=== PATIENT | male | born 1955 | race Caucasian/White ===

== ENCOUNTER 2017-01-31 11:54 | Inpatient (IN) | payer MEDICARE, MEDICAID ==
[~2017-01-31] VITALS: Ht 152.4 cm; Wt 48.6 kg
--- NOTE | ~2017-01-31 | DS ---
PATIENT'S NAME: DOMINICK RESENDEZ [facility] AGE: 61 Y [address] ROOM: [place] [id number] LOCATION: [facility] ADMIT DATE: 01/31/2017 Discharge Summary DISCHARGE DATE: 02/05/2017 FAMILY PHYSICIAN: Shani Santoyo MD ATTENDING PHYSICIAN: Shani Santoyo DISCHARGE DIAGNOSIS: 1. Pneumonia, bilateral lower lobes. 2. Hypoxia. 3. Decreased appetite with malnutrition. 4. Hypokalemia. 5. Hypothyroidism. 6. Hyperlipidemia. 7. Anxiety. 8. Down syndrome. 9. Incontinence with temporary urinary obstruction. 10. Anxiety. PROCEDURES DURING ADMISSION: None. CONSULTS DURING ADMISSION: None. HOSPITAL COURSE: The patient is a 61-year-old male who presented to clinic with hypoxia along with acute renal failure and an elevated white blood cell count and CRP. The patient was started on Levaquin and also supplemental oxygen. The patient was titrated to room air but had a decreased appetite which after couple days resumed back to his regular diet. The patient was hypokalemic and we replaced and his acute renal function resolved. Upon day of discharge, the patient was back to baseline with mentation, tolerating diet well, and had Palm removed and was urinating without difficulty. DISCHARGE CONDITION: Stable. DISPOSITION: skilled nursing. DISCHARGE INSTRUCTIONS: We will continue with Levaquin 500 mg p.o. daily for 5 more days. He is to follow up with Dr. Santoyo in 1 week for lab work and evaluation. SHANI SANTOYO MD RLG/teodorol PATIENT'S NAME: DOMINICK RESENDEZ [facility] AGE: 61 Y [address] ROOM: [address] [address] LOCATION: [facility] ADMIT DATE: 01/31/2017 Discharge Summary DISCHARGE DATE: 02/05/2017 FAMILY PHYSICIAN: Shani Santoyo MD ATTENDING PHYSICIAN: Shani Santoyo /[id number] d: 02/06/17 0629 t: 02/10/17 1331, DISCHARGE SUMMARY
[~2017-01-31 11:54] MED LIST: ATIVAN 0.5MG0.5 MG PO; CLARITIN10 MG PO; DEPAKENE250 MG/5 M PO; DESOWEN 0.05%15 GM TOP; LEVOTHROID (SY50 MCG PO; LIPITOR10 MG PO; PAXIL10 MG PO; RISPERDAL0.25 MG PO; TAB-A-VITE1 EACH PO; TEGRETOL200 MG PO; TRIAMCINOLONE 080 GM TOP; VIMPAT100 MG PO; ZOFRAN4 MG PO
[2017-01-31] MEDS ORDERED: VIMPAT100 MG PO (13:12)
[2017-01-31] MEDS ORDERED: DITROPAN XL5 MG PO (13:15)
[2017-01-31] MEDS ORDERED: ALBUTEROL2.5 MG/31 INH (13:16)
--- NOTE | 2017-01-31 13:16 | NUR ---
Pt is 61 y/o male admit for pneumonia for . Pt alert. Not able to assess orientation. Pt has Down Syndrome and is non-verbal. Pt becomes agitated and hollers with cares and medical procedures. Repeatedly attempts to remove O2 cannula. Allergy to risperdal. Red and yellow bracelets on. Pt resides at [facility] home. Hx syncope,sz,Down syndrome,non-verbal,wears helmet,seasonal allergies,OCD,anxiety/agitation w cares,undressing; hypothyroidism. Pt came from doctor's office today. Has his own wheelchair and helmet in the room.
[2017-01-31] MEDS ORDERED: DELTASONE20 MG PO (13:17)
--- NOTE | 2017-01-31 18:12 | NUR ---
Significant Event: PT alert at times. PT is nonverbal does moan/groan. IV patent to L)FA. IV antx given, fluid bolus given. PT repositions self. Bed alarms on at all times. Ativan given x1 at 1700 for agitation. Follow up:
--- NOTE | 2017-02-01 05:33 | NUR ---
Significant Event:pt has downs syndrome, is non verbal. pt has been very lethargic all shift.has iv to l inner fa w/ ns@ 125. pt has wheel chair in room and helmet that he is supposed to wear when out of bed. titrate o2 to keep sats > 93, has been on ra for me. hypotensive. pt had not voided since admission, bladder scanned for 611, called and got order for katz from dr. chowdhury, inserted 14 fr due to small urethral opening, no red seal on drainage system. strick i&o. pt has been moving in bed ind, no attempts to get out of bed. Follow up: continue to monitor.
[2017-02-01 07:10] LABS: BASOPHIL # 0.1 K/uL (0.0-0.2); BASOPHIL % 1.1 %; EOSINOPHIL # 0.1 K/uL (0.0-0.5); EOSINOPHIL % 0.6 %; HEMATOCRIT 36.7 % (37.0-53.0); HEMOGLOBIN 12.3 g/dL (11.0-16.0); IMMATURE GRANULOCYTE # 0.1 K/uL (0.0-0.3); IMMATURE GRANULOCYTE % 0.7 %; LYMPHOCYTE # 1.7 K/uL (0.8-4.0); LYMPHOCYTE % 19.2 %; MCH 36.8 pg (27.0-34.0); MCHC 33.5 gm/dL (32.0-36.5); MCV 109.9 fl (83.0-98.0); MONOCYTE # 1.2 K/uL (0.0-1.0); MONOCYTE % 13.2 %; MPV 11.7 fl (9.4-12.4); NEUTROPHIL # (ANC) 5.9 K/uL (1.4-9.0); NEUTROPHIL % 65.2 %; NRBC % 0 /100WBC (0-0.00); PLATELET COUNT 258 K/uL (150-450); RBC 3.34 M/uL (3.50-5.50); RDW-CV 13.2 % (11.9-14.6)
[2017-02-01 07:23] LABS: BLOOD UREA NITROGEN 19 mg/dL (6-24); CALCIUM 8.3 mg/dL (8.5-10.5); CHLORIDE 114 mMol/L (96-110); CO2 28 mMol/L (22-32); ESTIMATED GFR (MDRD EQUATION) > 60; POTASSIUM 4.9 mMol/L (3.7-5.1)
[2017-02-01 07:27] LABS: ANION GAP 9.9 (10.0-19.0); SODIUM 147 mMol/L (135-145)
--- NOTE | 2017-02-01 17:53 | NUR ---
Significant event: Has slept most of shift. Fed for meals ate only bites for meals. Did eat jello well, refused to drink. Brother and mom here this am. Palm continues to drain clear yellow urine. Takes meds crushed and in applesauce.
--- NOTE | 2017-02-02 05:14 | NUR ---
Significant Event:pt has downs syndrome and is non verbal. pt more awake at times. takes meds crushed in apple sauce. pureed diet. pt has helmet in room that is to be on when pt is up due to hx of siezures. no siezure activity this hospital stay. gianna patent w/ 1250 uop. iv to l fa has d5 1/2 ns @ 125. pt on ra w/ sat 93-98% vss afebrile Follow up:continue to monitor
[2017-02-02 06:05] LABS: BASOPHIL # 0.1 K/uL (0.0-0.2); BASOPHIL % 1.1 %; EOSINOPHIL # 0.1 K/uL (0.0-0.5); EOSINOPHIL % 1.1 %; HEMATOCRIT 32.5 % (37.0-53.0); HEMOGLOBIN 11.5 g/dL (11.0-16.0); IMMATURE GRANULOCYTE # 0.1 K/uL (0.0-0.3); IMMATURE GRANULOCYTE % 1.9 %; LYMPHOCYTE # 1.5 K/uL (0.8-4.0); MCH 36.6 pg (27.0-34.0); MCHC 35.4 gm/dL (32.0-36.5); MCV 103.5 fl (83.0-98.0); MONOCYTE % 14.7 %; MPV 10.8 fl (9.4-12.4); NEUTROPHIL # (ANC) 3.8 K/uL (1.4-9.0); NEUTROPHIL % 58.2 %; NRBC % 0 /100WBC (0-0.00); PLATELET COUNT 271 K/uL (150-450); RBC 3.14 M/uL (3.50-5.50); RDW-CV 12.1 % (11.9-14.6); WBC 6.5 K/uL (4.0-11.0)
[2017-02-02 06:18] LABS: CALCIUM 7.8 mg/dL (8.5-10.5); CHLORIDE 105 mMol/L (96-110); CO2 25 mMol/L (22-32); CREATININE 0.8 mg/dL (0.6-1.3); ESTIMATED GFR (MDRD EQUATION) > 60
[2017-02-02 06:19] LABS: ANION GAP 11.7 (10.0-19.0); POTASSIUM 3.7 mMol/L (3.7-5.1); SODIUM 138 mMol/L (135-145)
[2017-02-02 06:20] LABS: BLOOD UREA NITROGEN 7 mg/dL (6-24)
--- NOTE | 2017-02-02 15:43 | NUR ---
Significant event: More alert today. Has eaten well today. Brother here this am and plastics sheet finishing press operator here to help him eat. Responds well to plastics sheet finishing press operator. After he ate lunch noted his left arm shaking, was able to grasp caretakers hand. After he had a snack of jello noted the shaking of left arm again does resolve on own. Palm draining clear yellow urine.
--- NOTE | 2017-02-03 04:23 | NUR ---
Significant Event:PT IS NON VERBAL BUT ORIENTED TO SELF. PT IS MORE AWAKE THIS SHIFT. DID PULL OUT IV , NEW ONE STARTED TO R HAND WHICK HE MANAGED TO GET THE SL UNHOOKED AND MADE A MESS, IV REDRESSED AND IV BOARD APPLIED TO HIS HAND. D5 1/2 NS RUNNING @ 125. PT HAS A MEZA W/ 1700MLS OUT THIS SHIFT. MEDS ARE TO BE CRUSHED AND PUT IN APPLESAUCE. PT DOES NEED ASSISTANCE WITH EATING BUT DOES HAVE FAMILY AND CAPACITY ANALYST FROM THE LONG TERM COME HELP. PT HAS WHEEL CHAIR IN ROOM AND HELMET THAT SHOULD BE ON IF PT NOT IN BED R/T HX OF SIEZURES. NO SIEZURE ACTIVITY THIS VISIT. PT SLIGHTLY HYPERTENSIVE @ 140/68 ON FIRST ASSESSMENT, 127/78 AT SECOND ASSESS. Follow up:
[2017-02-03 06:07] LABS: ANION GAP 11.3 (10.0-19.0); BLOOD UREA NITROGEN 4 mg/dL (6-24); CALCIUM 7.8 mg/dL (8.5-10.5); CHLORIDE 107 mMol/L (96-110); CO2 26 mMol/L (22-32); CREATININE 0.8 mg/dL (0.6-1.3); ESTIMATED GFR (MDRD EQUATION) > 60; POTASSIUM 3.3 mMol/L (3.7-5.1); SODIUM 141 mMol/L (135-145)
--- NOTE | 2017-02-03 16:00 | NUR ---
Significant Event: Afebrile. Lungs clear in the uppers and clear and diminished in the bases. Occasional loose cough. SaO2 remains 97% on room air asleep and awake. His SaO2 is positional, he dropped to 89% asleep with his head of bed up (head was tipped forward), when the bed was reclined his SaO2 went up to 96-97%. Workers from [facility] report he drinks thickened liquids to decrease his aspiration. No seizure activity noted. Catheter removed at 1328. Ambulated to the bathroom with 2 assist and gait belt, Sat on toliet without results but brief was wet (moderate) Follow up:Possible home tomorrow.
--- NOTE | 2017-02-03 16:34 | NUR ---
Met with patient's caregiver Klarissa today. Introduced myself and explained my role with the CM department. Klarissa states patient is a resident at [facility] and he receives 24 hour care. They are planning on patient returning to his home there once medically cleared for discharge. I am to contact Gilbert with [facility] at [phone] for transportation and discharge orders. If I cannot get in touch wiht Gilbert, then I am to call Klarissa at [phone]. Will continue to follow and offer supports as needed.
--- NOTE | 2017-02-04 04:24 | NUR ---
SIGNIFICANT EVENT: Patient very sleep most of shift. VSS stable other than being tachycardic at times (82 to 118) - increased agitation with obtaining VS. Continous Pulse Ox. Seizure precautions. Helmet is to be on when pt is out of bed. [place] is from [place] and goal is to DC back to his location - possibly today. Crush pills and put in applesauce (try to get in just one spoonful if at all possible). 2PA. Palm DC'd yesterday, 2 incontinent voids this shift.
[2017-02-04 05:21] LABS: BASOPHIL # 0.1 K/uL (0.0-0.2); BASOPHIL % 0.9 %; EOSINOPHIL # 0.1 K/uL (0.0-0.5); EOSINOPHIL % 0.6 %; HEMOGLOBIN 11.6 g/dL (11.0-16.0); IMMATURE GRANULOCYTE # 0.2 K/uL (0.0-0.3); IMMATURE GRANULOCYTE % 2.6 %; LYMPHOCYTE # 1.8 K/uL (0.8-4.0); LYMPHOCYTE % 20.2 %; MCH 36.6 pg (27.0-34.0); MCHC 35.2 gm/dL (32.0-36.5); MCV 104.1 fl (83.0-98.0); MONOCYTE # 1.1 K/uL (0.0-1.0); MONOCYTE % 12.2 %; NEUTROPHIL # (ANC) 5.7 K/uL (1.4-9.0); NEUTROPHIL % 63.5 %; NRBC % 0 /100WBC (0-0.00); PLATELET COUNT 313 K/uL (150-450); RBC 3.17 M/uL (3.50-5.50); RDW-CV 12.5 % (11.9-14.6); WBC 8.9 K/uL (4.0-11.0)
[2017-02-04 05:31] LABS: ANION GAP 10.6 (10.0-19.0); BLOOD UREA NITROGEN 5 mg/dL (6-24); CALCIUM 8.1 mg/dL (8.5-10.5); CHLORIDE 107 mMol/L (96-110); CO2 27 mMol/L (22-32); CREATININE 0.8 mg/dL (0.6-1.3); ESTIMATED GFR (MDRD EQUATION) > 60; POTASSIUM 3.6 mMol/L (3.7-5.1); SODIUM 141 mMol/L (135-145)
--- NOTE | 2017-02-04 13:57 | NUR ---
Significant Event: Pt non-verbal and unable to follow commands. Inc urine. Repositioned q 2-3 hrs. IV K+ given, pulled out IV, new IV started to left anterior arm. Pt fed meals. Pureed thickened liquids. Crush meds in applesauce. Helmet on when up. Follow up:
--- NOTE | 2017-02-05 02:20 | NUR ---
SIGNIFICANT EVENT: Patient slept most of shift. Hypertensive at times - 128 to 170 over 79 to 87, other VSS on RA. PIV to L)FA infusing D5 1/2NS at 100. Crush meds and put in a spoonful of applesauce. Pureed regular diet, nectar thick liquids. 2PA to transfer/reposition. 3 Mod/Lg incontinent voids so far this shift. Helmet on when ambulating. Cooperative with cares.
--- NOTE | 2017-02-05 11:19 | NUR ---
A - PT SCREENED D/T LOS. NONVERBAL. NEEDS ASSISTANCE W/ MEALS. HT: 60" WT: 107# BMI: 20.9. LABS: K+ 3.6, BUN/CR 5/0.8, CRP 3.03. MEDS: SYNTHROID, D5NS, LEVAQUIN, NAUSEA. DIET: PUREED, NECTAR LIQUIDS. INTAKE: 25-100% NEEDS: 6176-2613 KCAL (25-30 KCAL/KG), 39-49 G PRO (0.8-1 G/KG), 1470 ML FLUID (30 ML/KG). D - INADEQUATE NUTRIENT INTAKE AT TIMES R/T DECREASED APPETITE AEB INTAKE RECORD. I - GOAL FOR INTAKE 50-100% BY NEXT ASSESSMENT. WILL ADD ENSURE PUDDING @ L&D M/E - WILL MONITOR INTAKE. F/U IN 3-5 DAYS.
[2017-02-05] MEDS ORDERED: LEVAQUIN500 MG PO (12:08)
--- NOTE | 2017-02-05 12:55 | NUR ---
D: ORDERS RECEIVED FOR THE PATIENT TO RETURN HOME WITH HIS CAREGIVERS. I: DISMISSAL INSTRUCTIONS WERE PREPARED AND REVIEWED WITH HIS CAREGIVERS VIRTUALLY. THE FOLLOWING INFORMATION WAS DISCUSSED INCLUDING KRAMES TEACHING SHEETS PROVIDED: WHEN YOU HAVE PNEUMONIA, TREATING PNEUMONIA, PREVENTING PNEUMONIA, LEVAQUIN AND PREVENTING DVT. REVIEWED FOLLOW UP APPOINTMENT WITH DR. SANTOYO AND HIS NEW ANTIBIOTIC PRESCRIPITIONS. R: THE CAREGIVER BOTH VERBALIZED UNDERSTANDING OF THE DISMISSAL EDUCATION AT THE TIME OF TEACHING WITH NO FURTHER QUESTIONS. P: THE ABOVE INFORMATION WAS SHARED WITH THE PRIMARY NURSE AND THE CHARGE NURSE THAT THE PATIENT DISMISSAL EDUCATION WAS COMPLETED. THE PATIENT IS READY FOR DISCHARGE TO THE FRONT DOOR VIA WHEEL CHAIR BY NURSING STAFF.
--- NOTE | 2017-02-05 13:11 | NUR ---
Notified by charge nurse that patient is okay for discharge today. I contaced Gilbert with [facility] and arranged for patient to be picked up at 1230 for discharge. Faxed patient's discharge orders to Nisa (Medical Coordinator) at [facility] [phone]. No other discharge needs.
== END 2017-02-05 13:09 | disposition disaster alternative care site (69) | DRG 194 ==
LOC: GMSU 11:54 → EDSTATUS 12:00 → GMSU 02-05 13:09
PROVIDERS: ADMIT Family Medicine
DX: J18.1 Lobar pneumonia, unspecified organism (principal); N17.9 Acute kidney failure, unspecified; N18.3 Chronic kidney disease, stage 3 (moderate); Q90.9 Down syndrome, unspecified; E44.1 Mild protein-calorie malnutrition; E03.9 Hypothyroidism, unspecified; E78.5 Hyperlipidemia, unspecified; F79 Unspecified intellectual disabilities; R09.02 Hypoxemia; E86.0 Dehydration; E87.6 Hypokalemia; R32 Unspecified urinary incontinence; F41.9 Anxiety disorder, unspecified; N13.9 Obstructive and reflux uropathy, unspecified; Z68.21 Body mass index [BMI] 21.0-21.9, adult
CPT/HCPCS: J1650; J1956; J2060; J3480; J7030; J7040; J7050

== ENCOUNTER 2017-02-07 10:22 | Inpatient (IN) | payer MEDICARE, MEDICAID ==
[~2017-02-07] VITALS: Ht 157.5 cm; Wt 56.2 kg
--- NOTE | ~2017-02-07 | HP ---
PATIENT'S NAME: DOMINICK RESENDEZ [facility] AGE: 61 Y [address] ROOM: [place] [address] LOCATION: [facility] ADMIT DATE: 02/07/2017 History & Physical DISCHARGE DATE: FAMILY PHYSICIAN: Saurabh Cooley MD ATTENDING PHYSICIAN: JUANITO ROBB DATE OF SERVICE: CHIEF COMPLAINT: Status epilepticus. HISTORY OF PRESENT ILLNESS: This is a 61-year-old male with a known history of Down syndrome and severe mental retardation, seizure disorder, who presents here today after sustaining a seizure-like episode. The patient was apparently at work today and while at work he was noted to slouch over a chair and attempting to sit down and brace himself as noted by his fellow coworkers. That initial episode lasted for few seconds and then it seemed like he recovered and then went ahead and had another seizure which from the description I am getting sounded like a tonic- clonic type seizure and was subsequently brought to the emergency room. The patient during my evaluation today is awake and alert and mental status luo appears to be at his baseline and his caretakers and family agrees to that as well. Of note, the patient has been having some nausea and vomiting since yesterday after he got home from his hospitalization discharge, which he had just been hospitalized for management of pneumonia and then was released yesterday. The patient otherwise looks comfortable, he is afebrile. Vital signs currently stable. PAST MEDICAL HISTORY: Includes severe MR, hard of hearing, cataracts, obsessive-compulsive disorder, and seizure disorder. FAMILY HISTORY: Father had an NV at age 45 and his mom has diabetes. SOCIAL HISTORY: No reported use of tobacco, alcohol, or drugs. REVIEW OF SYSTEMS: A full review of systems was not able to be conducted because of the patient's known severe mental retardation. PHYSICAL EXAMINATION: VITAL SIGNS: Temperature 97.5, blood pressure 108/60, pulse 95, respiratory rate 12, and saturating 91% on room air. PATIENT'S NAME: DOMINICK RESENDEZ [facility] AGE: 61 Y [address] ROOM: [place] [address] LOCATION: [facility] ADMIT DATE: 02/07/2017 History & Physical DISCHARGE DATE: FAMILY PHYSICIAN: Saurabh Cooley MD ATTENDING PHYSICIAN: JUANITO ROBB GENERAL: The patient is awake, alert, and oriented x1 and appears to be at baseline. HEENT: Moist mucous membranes. No scleral icterus or conjunctival pallor noted. SKIN: Without rash or lesions. CHEST: Clear to auscultation bilaterally. HEART: S1, S2. Regular rate and rhythm. ABDOMEN: Soft, nontender, nondistended with positive bowel sounds. NEURO: Grossly nonfocal. MUSCULOSKELETAL: No joint tenderness, swelling, or muscular pain noted. ASSESSMENT AND PLAN: 1. Status epilepticus. The patient noted to have 2 separate seizures 10 minutes apart. The patient is supposed to be on valproic acid at home and measured levels here do show this to be within the therapeutic range; however, in the setting of a breakthrough seizure levels, probably do not mean much. In any case, I will load him with Keppra 1000 mg IV x1 and keep him on 500 mg p.o. b.i.d. 2. Hypotension. This is likely related to the patient's seizure. No signs and symptoms of a possible infection to explain this are noted. We will continue to monitor. The patient is on 1 L of bolus. 3. Acute kidney injury. Creatinine 1.5, baseline is less than 1. We will recheck kidney function in the morning after IV fluid resuscitation. 4. Hypothyroidism, uncontrolled. TSH 14. I will increase his Synthroid to 100 mcg daily. 5. Mental retardation and Down syndrome. 6. Deep venous thrombosis prophylaxis. We will use subcutaneous heparin. JUANITO ROBB MD BG/modl /[id number] D: T: 521 HISTORY & PHYSICAL
--- NOTE | ~2017-02-07 | DS ---
PATIENT'S NAME: DOMINICK RESENDEZ [facility] AGE: 61 Y [address] ROOM: [address] [place], [place] [address] LOCATION: [facility] ADMIT DATE: 02/07/2017 Discharge Summary DISCHARGE DATE: 02/09/2017 FAMILY PHYSICIAN: Saurabh Cooley MD ATTENDING PHYSICIAN: Raysa Garcia SUMMARY DATE OF DISCHARGE/: 02/09/2017. ADMITTING DIAGNOSIS: Status epilepticus. DISCHARGE DIAGNOSES: (The patient on comfort care measures). 1. Status epilepticus. 2. Acute hypoxemic respiratory failure. 3. Acute septic shock likely secondary to #4. 4. Possible aspiration pneumonitis/pneumonia. 5. Severe intellectual impairment. HOSPITALIZATION COURSE: This was a 61-year-old male with history significant for Down syndrome, severe intellectual impairment, and seizure disorder, who was admitted to [facility] on 02/07/2017 for recurrent seizure- like episodes and was admitted as status epilepticus. He was initially loaded up with phenytoin and ativan with improvement in the seizures. However, during his hospitalization, he again had further episodes of seizure that required administration of ativan. On the night of 02/08/2017, the patient had an acute respiratory distress and went into an acute septic shock with acute hypoxemic respiratory failure. He was given several liters of fluid and put on high-flow oxygen. His code status was DNR and DNI. Family members were informed about the situation and they did not want to have any aggressive measures like such as intubation or central line placement. The patient was placed on the dopamine drip, maxed out to maintain blood pressure and his oxygenation was around 92% on 6 L. His mental status remained poor during the hospitalization. We discussed at length about the goals of care for the patient. Dr Orona (organic preparation analyst) had a long discussion with the family members and informed them his situation. Patient's sister Marga and brother Arias reiterated that he wasa DNR/DNI and that they did not want to have any more aggressive measures such as intubation or central line placement for additional pressor support. The patient was continued on supportive management with IV fluids and IV Zosyn. CXR done showed perihilar insterstitial opacities that was worrisome for pulmonary edema versus infiltrate. I attempted to give some Lasix 20 mg IV while he was on dopamine drip with no significant improvement. I asked for palliative care consult as well. The family including POA decided to go for comfort care measures and all infusions were discontinued. The patient on 02/09/2017 at 09:15 a.m. Family was at bedside. Support provided to the family members. PCP was notified by nurse. PATIENT'S NAME: DOMINICK RESENDEZ [facility] AGE: 61 Y [address] ROOM: [place] [address] LOCATION: [facility] ADMIT DATE: 02/07/2017 Discharge Summary DISCHARGE DATE: 02/09/2017 FAMILY PHYSICIAN: Saurabh Cooley MD ATTENDING PHYSICIAN: Raysa Garcia The patient was pronounced at 09:15 a.m. on 02/09/2017 by myself. MARA TINEO MD BA/modl /[id number] d: 02/11/17 0346 t: 02/11/17 1703, DISCHARGE SUMMARY
--- NOTE | ~2017-02-07 | ER ---
PATIENT'S NAME: DOMINICK RESENDEZ [facility] AGE: 61 Y [address] ROOM: [place] [address] [facility] ADMIT DATE: 02/07/2017 ER/Outpatient Report DISCHARGE DATE: FAMILY PHYSICIAN: Saurabh Cooley MD ATTENDING PHYSICIAN: JUANITO GARCIA CHIEF COMPLAINT: Seizure-like activity with vomiting. HISTORY OF PRESENT ILLNESS: The patient had 2 episodes of seizure this morning, which were witnessed and described as unusual eye movements and body stiffening. Total duration is unclear. He did not appear to return to baseline prior to going to clinic. He did vomit on the way to clinic. Upon being evaluated there, he was referred here and arrived by ambulance for that same issue. He has likely known seizure disorder as well as Down syndrome with significant mental developmental delay. He is usually mute but relatively active according to collateral sources. He has known hypothyroidism and high cholesterol as well. PAST MEDICAL HISTORY: Documented on the record and reviewed by me. SOCIAL HISTORY: Documented on the record and reviewed by me. MEDICATIONS: Documented on the record and reviewed by me. ALLERGIES: DOCUMENTED ON THE RECORD AND REVIEWED BY ME. REVIEW OF SYSTEMS: All systems were reviewed and negative except as noted in the HPI. PHYSICAL EXAMINATION: VITAL SIGNS: Blood pressure 102/58, pulse is 84, respiratory rate is 18, temperature 96.2, SpO2 is 91% on room air. Pain is unclear. NEURO: The patient is awake. He does move all extremities spontaneously. He does not follow commands. He does not talk. He does regard the examiner. GENERAL: He does have an ill appearance. Generally, he has poor color, but no obvious other abnormalities. There is some vomitus on his shirt. HEENT: Normocephalic, atraumatic. The eyes are PERRL. The oropharynx is clear. NECK: Supple. Trachea is midline. There are some significant secretions and some coarseness in the throat upon auscultation. PATIENT'S NAME: DOMINICK RESENDEZ [facility] AGE: 61 Y [address] ROOM: [place] [address] LOCATION: [facility] ADMIT DATE: 02/07/2017 ER/Outpatient Report DISCHARGE DATE: FAMILY PHYSICIAN: Saurabh Cooley MD ATTENDING PHYSICIAN: JUANITO GARCIA CHEST: Heart is regular rate and rhythm with no obvious murmurs. The lungs are grossly clear to auscultation bilateral with what I believe is referred upper airway sounds. BACK: Nontender with no deformities. ABDOMEN: Soft, nontender, and nondistended. EXTREMITIES: Warm and well perfused. SKIN: Warm, dry, and intact. LABORATORY DATA AND X-RAYS: Chest x-ray without any infiltrate per my read. Radiology opinion is pending. Labs: Procalcitonin is below detectable threshold. CMS is notable for a creatinine of 1.5; GFR of 48, up from 0.8 and greater than 60 respectively. Remainder of LFTs and CMS are grossly unremarkable. Troponin I is below threshold. ProBNP is 326. Free T4 and TSH are consistent with known hypothyroidism. Lactate is 3.7. Prolactin is 63. Valproic acid is 55. CBC: Notable for white count of 9.2, hemoglobin 12.4, platelets of 311. INR is 1.0. Blood gas: The pH of 7.41, pCO2 is 48, pO2 is 50, bicarb is 30.4, CO2 is 32, FiO2 is room air. Head CT, unremarkable per Radiology. IMPRESSION: 1. Seizure with prolonged return to baseline. 2. Lactic acidemia. 3. Acute kidney injury with azotemia. 4. Underlying Down syndrome with developmental delay. 5. Intermittent hypoxia of undetermined etiology. EMERGENCY DEPARTMENT COURSE: The patient was seen and evaluated as above. Volume was given for JENNIFER and elevated lactate. No anion gap. Blood gas reveals normal pH. His O2 monitor would intermittently read in the mid 90s and mid 80s, both with good plethysmography with no change in the patient's condition. His blood gas was redrawn and remained basically unchanged indicating mild hypoxemia. The patient would not tolerate nasal cannula, and we would remove it. For that reason, a facemask was placed near his chin, and the flow rate was turned up high, and he was receiving blow-by oxygen. The patient would tolerate same. Based on his current presentation, he requires hospitalization. I spoke with the patient's primary care, Dr. Cooley, who will not be able to care for him in the hospital and has requested the Hospitalist Service. I discussed the case with Dr. Garcia, who will admit the patient for further evaluation and treatment. Of note, while the patient was sleeping, his blood pressures did go lower into the 75 range systolically. Upon awaking the patient, his blood pressure came back up to his normal range around 100 systolic. All PATIENT'S NAME: DOMINICK RESENDEZ [facility] AGE: 61 Y [address] ROOM: [place] [address] LOCATION: [facility] ADMIT DATE: 02/07/2017 ER/Outpatient Report DISCHARGE DATE: FAMILY PHYSICIAN: Saurabh Cooley MD ATTENDING PHYSICIAN: JUANITO GARCIA questions were answered, and the patient was admitted without further issue to the progressive care unit. MD BONNIE DYSON/tono /[id number] d: 02/07/17 2246 t: 02/18/17 1732, OUTPATIENT REPORT
--- NOTE | ~2017-02-07 | CON ---
PATIENT'S NAME: DOMINICK RESENDEZ [facility] AGE: 61 Y [address] ROOM: [id number] [place], [place] [id number] LOCATION: [facility] ADMIT DATE: 02/07/2017 Consultation DISCHARGE DATE: FAMILY PHYSICIAN: Saurabh Cooley MD ATTENDING PHYSICIAN: JUANITO ROBB DATE OF CONSULTATION: 02/08/2017 The patient was seen on 02/08/2017 at 2:00 p.m. HISTORY OF PRESENT ILLNESS: Mr. Resendez is known to our Neurology Service from prior admission back in July. He is seen in [facility] by Dr. Cooley. He is a 61-year-old male patient who was sent here from [facility] after recent hospitalization here in our hospital for a pneumonia. He has a history of severe mental retardation associated with Down syndrome as well as a seizure disorder. We had seen him in our office as well as in the hospital few times due to episodes of falling as well as periods of poorly-controlled seizure activity. Last time, the patient was seen in our office, we made some adjustments to his seizure medications a number of months ago. The patient was apparently at work and slouched down into his chair, was found by the fellow coworkers to appear to be like a typical seizure for him, associated with some generalized tonic-clonic activity. It was reported also that he had some difficulty with keeping down his food during the day and was actually having episodes of nauseousness and vomiting. He previously had some issues with pneumonia, thus a chest x-ray did show some worsening of his interstitial opacities throughout the lungs consistent with likely the pneumonia or some fluid overload. The patient had been receiving IV fluids here. Blood pressure elevated, but now he has been put also on dopamine for blood pressure control. CAT scan of the brain was done, which showed no evidence of any acute process such as a stroke, but showed enlarged stable ventricles associated with generalized parenchymal atrophy. From a neurologic standpoint, he is sedated, likely from multiple times receiving doses of Ativan in the setting of him having generalized seizures during the evening, so he has been receiving normal saline due to low blood pressure events. His most recent blood pressure was holding around 100 systolic, thus difficulty giving him diuretics to diurese him has been the major issue in the setting of him also receiving Ativan. PRIOR MEDICAL HISTORY: History of depression and OCD. Significant history is only associated with Down syndrome. ALLERGIES: HE HAS NO KNOWN DRUG ALLERGIES. PATIENT'S NAME: DOMINICK RESENDEZ [facility] AGE: 61 Y [address] ROOM: [id number] [place], [place] [address] LOCATION: [facility] ADMIT DATE: 02/07/2017 Consultation DISCHARGE DATE: FAMILY PHYSICIAN: Saurabh Cooley MD ATTENDING PHYSICIAN: JUANITO ROBB SOCIAL HISTORY: He is not a smoker or drinker. He does not live with his family, but lives at [facility]. SURGICAL HISTORY: None. CURRENT MEDICATIONS: Here include, 1. Valproate 500 mg IV q.h.s. as well as valproate 250 mg daily given IV. 2. Levothyroxine 50 mcg IV daily. 3. Lacosamide increased to 200 mg twice a day. 4. Levetiracetam 500 mg IV twice a day. 5. Zosyn 0.375 g IV q.8 hours. REVIEW OF SYSTEMS: The patient presents with a generalized seizure as a known seizure disorder multiple times. He has had a loss of consciousness in the past. This event seemed to be associated with more of a respiratory issue, as the patient has had opacities seen on the chest x-ray consistent with pneumonia. There is some evidence of CHF component here. The patient does have a history of CHF. He has mental retardations associated with Down syndrome. Echocardiogram done in 2016 does reveal left ventricular ejection fraction of 55-60% with a mild grade 1 diastolic dysfunction. PHYSICAL EXAMINATION: GENERAL: The patient is obtunded. He is unresponsive. Currently, he is lying in bed. He appears to be comfortable. He is not in acute distress. His pulse oxygenation 96% on room air. He is receiving dopamine pressor support for blood pressure holding into the 90s systolic without pressor support. VITAL SIGNS: Pulse of 76 and regular, respiration rate 12, blood pressure 102/80, temperature is afebrile. NEUROLOGIC: Cranial Nerves: Pupils are equal and reactive and responsive to light. We did test his extraocular movements. He appears to have normal facial symmetry. He does not move his limbs to painful stimuli. He cannot participate in the exam as he is otherwise obtunded. IMPRESSION: Mr. Resendez is known to Neurology from prior strokes associated with poorly controlled seizure history. We will increase the dosing of the lacosamide medication to 200 mg twice a day. We will get levels on his valproic acid, and try to push the levels up appropriately to assure better seizure management. We will try to cut back as best as possible on the use of Ativan PATIENT'S NAME: DOMINICK RESENDEZ [facility] AGE: 61 Y [address] ROOM: [place] [address] LOCATION: [facility] ADMIT DATE: 02/07/2017 Consultation DISCHARGE DATE: FAMILY PHYSICIAN: Saurabh Cooley MD ATTENDING PHYSICIAN: JUANITO ROBB since this is probably aiding towards some obtundation, but we will have to be careful with the blood pressures as well as fluid input as of recently over the past 5 hours he has had very little urinary output. Thus, Lasix is going to be instituted slowly in the patient. We will continue to follow the patient's seizure status with the medical staff. MD KAREN OREILLY/tono /[id number] d: 02/08/171 t: 02/09/170, CONSULTATION REPORT
--- NOTE | ~2017-02-07 | CON ---
PATIENT'S NAME: DOMINICK RESENDEZ [facility] AGE: 61 Y [address] ROOM: [place] [address] LOCATION: [facility] ADMIT DATE: 02/07/2017 Consultation DISCHARGE DATE: 02/09/2017 FAMILY PHYSICIAN: Saurabh Cooley MD ATTENDING PHYSICIAN: Raysa Garcia DATE OF CONSULTATION: 02/08/2017 REFERRING PHYSICIAN: Rdaha Longoria MD LOCATION: Neuro Trauma Unit, room 6232. CHIEF COMPLAINT: Palliative care referral for goals of care and the patient's family support. HISTORY OF PRESENT ILLNESS: The patient is a 61-year-old male with a history of Down syndrome, seizure disorder, and a recent hospitalization, during which time, he was treated for bilateral lower lobe pneumonia. Family reports that the patient has been having some nausea and vomiting since his discharge from the hospital. The patient lives in a intermediate under [facility]. Apparently, he had returned to work on the day of admission and was noted to be slouched over in a chair and seemed to be having seizure activity. The patient was brought to the emergency room after having another seizure and was admitted to the hospital. On the night of February 07, 2017 the patient was noted to have decreased oxygen saturations and hypotension and a Rapid Response was called. Apparently, the patient is being maintained on 6 L of oxygen and a dopamine drip. The patient is unresponsive with sonorous respirations, and his family is at bedside. Despite fluid resuscitation, vasopressors, and high-flow oxygen as well as antibiotics, now the patient remains unresponsive and family is requesting no further additional aggressive measures. Thus, Palliative Care has been consulted to assist with goals of care conversation. PREVIOUS OPERATION: 1. Implantable loop recorder. 2. Colonoscopy. 3. Teeth extraction. PAST MEDICAL HISTORY: 1. Down syndrome with MR. 2. Seizure disorder. 3. Bilateral cataracts. 4. Obsessive-compulsive disorder. MEDICATIONS: PATIENT'S NAME: DOMINICK RESENDEZ [facility] AGE: 61 Y [address] ROOM: [place] [address] LOCATION: [facility] ADMIT DATE: 02/07/2017 Consultation DISCHARGE DATE: 02/09/2017 FAMILY PHYSICIAN: Saurabh Cooley MD ATTENDING PHYSICIAN: Raysa Garcia Please see current MAR. ALLERGIES: RISPERDAL. SOCIAL HISTORY: No history of tobacco or alcohol use. The patient resides in a intermediate with [facility]. FAMILY HISTORY: He has a brother who also has Down syndrome. All other siblings are alive and well. His mother is diabetic. REVIEW OF SYSTEM: As per HPI, all other systems reviewed and negative except for as noted. PHYSICAL EXAMINATION: VITALS SIGNS: Blood pressure 94/51, heart rate 76, temperature 98.2, respirations 16, O2 sat 99% on 6 L. GENERAL: Reveals an unresponsive elderly white male who is lying in a hospital bed, does not appear to be in any acute distress. Although he does occasionally have coughing episodes which cause some distress, but he calms right down. HEENT: Pupils are equal, round, and reactive to light. Normocephalic, atraumatic. He does have a thick tongue which is dry. CARDIOVASCULAR: Heart tones regular rate and rhythm. I am not able to note a murmur. RESPIRATORY: Respirations are regular and nonlabored, occasionally has very weak, moist cough. He is unable to clear on his own. GASTROINTESTINAL: Abdomen is soft, nondistended. GENITOURINARY: Palm catheter is intact with adequate amounts of yellow urine. MUSCULOSKELETAL: No significant joint deformity. Does have generalized edema. SKIN: Warm and dry, no rashes. IMPRESSION AND PLAN: 1. Altered mental status, status epilepticus. Status post Ativan administration. We will continue to monitor. The patient's sister reports that when he is awake and feeling well, he will pull out his IVs and any tubes/wires. 2. Respiratory distress. The patient at this point appears fairly comfortable except for when he coughs, does have p.r.n. morphine available and this was used x1 last night. Did discuss with nursing staff to use this more frequently as the family would like for him to be PATIENT'S NAME: DIPTI DOMINICK D [facility] AGE: 61 Y [address] ROOM: [place] [address] LOCATION: [facility] ADMIT DATE: 02/07/2017 Consultation DISCHARGE DATE: 02/09/2017 FAMILY PHYSICIAN: Saurabh Cooley MD ATTENDING PHYSICIAN: Raysa Garcia. 3. Code status. The patient is a DNR/DNI. I visited with the patient's sister who is at bedside, introduced the role of palliative care to assist with comfort and goals of care conversation. Family reports to me that the ultimate goal is for the patient to be comfortable, but at this point, they want to give him a chance to get better with continued antibiotics and dopamine, but reports that if his condition worsens, they do not wish for additional interventions such as vasopressors, BiPAP, or intensive care unit transfer. Provided education to the patient's sister on comfort measures. Medications will be used to help him to be comfortable as well as the possibility of discontinuing dopamine and high-flow oxygen to help him pass comfortably. At this point, they would like to see how the next 24- 48 hours go. Provided emotional support and active listening. Offered pastoral care. Family reports that they had already been up and they feel as though they have good support. Family seems quite realistic to the situation. The patient's sister does report that their mom is struggling a bit with this, but she has good support. Discussed with nursing staff, encouraged them to call me should there be any symptoms or should the family have any questions or should they wish to pursue full comfort measures. Total time at bedside was 35 minutes. Greater than 50% of this time was spent providing education and counseling. Thank you for allowing me assist this patient and family. LENNOX CHILDS NP FOR DORINA CUENCA MD DLS/modl /[id number] d: 02/11/17 2254 t: 02/13/17 1122, CONSULTATION REPORT
[2017-02-07 10:55] LABS: BASOPHIL # 0.1 K/uL (0.0-0.2); EOSINOPHIL # 0.1 K/uL (0.0-0.5); EOSINOPHIL % 0.8 %; HEMATOCRIT 35.9 % (37.0-53.0); HEMOGLOBIN 12.4 g/dL (11.0-16.0); IMMATURE GRANULOCYTE # 0.5 K/uL (0.0-0.3); IMMATURE GRANULOCYTE % 4.9 %; LYMPHOCYTE # 2.2 K/uL (0.8-4.0); MCH 36.5 pg (27.0-34.0); MCHC 34.5 gm/dL (32.0-36.5); MCV 105.6 fl (83.0-98.0); MONOCYTE % 10.9 %; NEUTROPHIL # (ANC) 5.3 K/uL (1.4-9.0); NEUTROPHIL % 58.4 %; NRBC % 0 /100WBC (0-0.00); PLATELET COUNT 311 K/uL (150-450); RDW-CV 13.5 % (11.9-14.6); WBC 9.2 K/uL (4.0-11.0)
[2017-02-07 11:04] LABS: INR - (THERAPEUTIC) 1.06 (0.92-1.07); PROTIME 11.1 SECONDS (9.8-11.4); PTT 28 SECONDS (25-32)
[2017-02-07 11:19] LABS: ALBUMIN 2.3 gm/dL (3.5-5.0); ALK PHOS 89 IU/L (33-138); ALT 45 IU/L (12-78); ANION GAP 14.8 (10.0-19.0); AST 39 IU/L (10-40); BLOOD UREA NITROGEN 17 mg/dL (6-24); CALCIUM 8.5 mg/dL (8.5-10.5); CHLORIDE 104 mMol/L (96-110); CO2 25 mMol/L (22-32); CREATININE 1.5 mg/dL (0.6-1.3); POTASSIUM 3.8 mMol/L (3.7-5.1); SODIUM 140 mMol/L (135-145); TOTAL BILIRUBIN 0.2 mg/dL (0.0-1.5); TOTAL PROTEIN 6.3 g/dL (6.0-8.4)
[2017-02-07 11:21] LABS: ESTIMATED GFR (MDRD EQUATION) 48
[2017-02-07 13:01] LABS: BICARBONATE 30.4 mmol/L (18.0-23.0); PCO2 48 mmHg (35-45); PO2 50 mmHg (80-90)
--- NOTE | 2017-02-07 15:03 | NUR ---
PT is 61 y/o male admit for acute kidney injury/seizures for hospitalist. Pt alert. Hx Down Syndrome. Resides at [facility]. On normal days he walks with at least 1 assist if not independently. Wears helmet at home. Hx seizures, has implanted loop recorder,KAIBAB,seasonal allergies,no teeth-eats soft diet,hypercholest,occas cough,hypothyroid,OCD,anxiety timothy with medical procedures and cares, and syncope. Family at bedside. Allergy to risperdal. Red and yellow bracelets on. Implanted loop recorder in place for cardiac monitoring for unexplained syncopal episode hx.
--- NOTE | 2017-02-07 19:15 | NUR ---
Significant Event: alert. opens eyes spontaneously. does not follow commands. lung sounds clear/diminished. ambulates with gait belt and two assist. continent of urine. takes meds crushed in applesauce. no teeth. pureed diet. IV to left hand with NS at 75ml/hr. no seizures since taken to [facility] today. ASAEL. Does have loop recorder. tele with [employer].
[2017-02-08 00:30] LABS: BILIRUBIN URINE NEGATIVE (NEGATIVE); BLOOD URINE NEGATIVE /UL (NEGATIVE); COLOR URINE YELLOW (YELLOW); GLUCOSE URINE NEGATIVE (NEGATIVE); KETONE URINE NEGATIVE (NEGATIVE); LEUKOCYTES URINE NEGATIVE /UL (NEGATIVE); NITRITE URINE NEGATIVE (NEGATIVE); PROTEIN URINE NEGATIVE (NEGATIVE); TURBIDITY URINE CLEAR (CLEAR); UROBILINOGEN URINE NORMAL (NORMAL)
[2017-02-08 00:43] LABS: BASOPHIL # 0.1 K/uL (0.0-0.2); BASOPHIL % 0.4 %; EOSINOPHIL % 0.1 %; HEMATOCRIT 34.1 % (37.0-53.0); HEMOGLOBIN 11.7 g/dL (11.0-16.0); IMMATURE GRANULOCYTE # 0.2 K/uL (0.0-0.3); IMMATURE GRANULOCYTE % 1.3 %; LYMPHOCYTE # 2.3 K/uL (0.8-4.0); LYMPHOCYTE % 11.9 %; MCH 36.3 pg (27.0-34.0); MCHC 34.3 gm/dL (32.0-36.5); MCV 105.9 fl (83.0-98.0); MONOCYTE # 1.6 K/uL (0.0-1.0); MONOCYTE % 8.2 %; MPV 10.9 fl (9.4-12.4); NEUTROPHIL # (ANC) 14.9 K/uL (1.4-9.0); NEUTROPHIL % 78.1 %; NRBC % 0 /100WBC (0-0.00); PLATELET COUNT 273 K/uL (150-450); RBC 3.22 M/uL (3.50-5.50); RDW-CV 13.9 % (11.9-14.6); WBC 19.1 K/uL (4.0-11.0)
[2017-02-08 00:55] LABS: ANION GAP 13.2 (10.0-19.0); BLOOD UREA NITROGEN 12 mg/dL (6-24); CALCIUM 7.8 mg/dL (8.5-10.5); CHLORIDE 107 mMol/L (96-110); CO2 27 mMol/L (22-32); CREATININE 1.1 mg/dL (0.6-1.3); ESTIMATED GFR (MDRD EQUATION) > 60; POTASSIUM 4.2 mMol/L (3.7-5.1); SODIUM 143 mMol/L (135-145)
[2017-02-08 01:11] LABS: BICARBONATE 26.6 mmol/L (18.0-23.0); PCO2 43 mmHg (35-45); PO2 66 mmHg (80-90)
--- NOTE | 2017-02-08 01:35 | NUR ---
PT WAS A RAPID RESPONSE TONIGHT DUE TO HYPOTENSIVE EPISODE, PT IS CURRENTLY ON HFNC.
[2017-02-08 04:47] LABS: BASOPHIL # 0.1 K/uL (0.0-0.2); BASOPHIL % 0.5 %; EOSINOPHIL # 0.1 K/uL (0.0-0.5); EOSINOPHIL % 0.3 %; HEMATOCRIT 32.5 % (37.0-53.0); IMMATURE GRANULOCYTE # 0.2 K/uL (0.0-0.3); IMMATURE GRANULOCYTE % 1.3 %; LYMPHOCYTE # 2.3 K/uL (0.8-4.0); LYMPHOCYTE % 13.2 %; MCH 36.4 pg (27.0-34.0); MCHC 33.8 gm/dL (32.0-36.5); MCV 107.6 fl (83.0-98.0); MONOCYTE # 1.7 K/uL (0.0-1.0); MONOCYTE % 9.6 %; NEUTROPHIL # (ANC) 13.2 K/uL (1.4-9.0); NEUTROPHIL % 75.1 %; NRBC % 0 /100WBC (0-0.00); PLATELET COUNT 264 K/uL (150-450); RBC 3.02 M/uL (3.50-5.50); RDW-CV 13.8 % (11.9-14.6)
[2017-02-08 04:48] LABS: WBC 17.5 K/uL (4.0-11.0)
[2017-02-08 05:02] LABS: ALBUMIN 2.1 gm/dL (3.5-5.0); BLOOD UREA NITROGEN 10 mg/dL (6-24); CHLORIDE 113 mMol/L (96-110); CO2 25 mMol/L (22-32); ESTIMATED GFR (MDRD EQUATION) > 60; MAGNESIUM 2.1 mg/dL (1.8-2.6)
[2017-02-08 05:04] LABS: CALCIUM 7.3 mg/dL (8.5-10.5); SODIUM 146 mMol/L (135-145)
--- NOTE | 2017-02-08 09:10 | NUR ---
Significant Event: Patient is nonverbal. Has Downs Syndrome. Opened eyes to voice and a light sternal rub upon first assessment. Moves all extremities spontaneously. Does not follow commands. But will take meds well crushed in applesauce. Patient became hypotensive upon 2nd assessment. Rapid Respone was administered. A fluid bolus was given and dopamine was started. High flow NC applied. Patient became more alert after fluid bolus was given, eyes opening more spontaneously. B/P continue to be hypotensive, dopamine drip continues. Family at bedside discussed plan of care with hospitalist. Seizure activity was noted later in shift by MD. Ativan given. Follow up: Continue to monitor patient
[2017-02-08 11:25] LABS: BASOPHIL # 0.1 K/uL (0.0-0.2); BASOPHIL % 0.7 %; EOSINOPHIL # 0.1 K/uL (0.0-0.5); EOSINOPHIL % 0.5 %; HEMATOCRIT 30.6 % (37.0-53.0); HEMOGLOBIN 10.4 g/dL (11.0-16.0); IMMATURE GRANULOCYTE # 0.2 K/uL (0.0-0.3); IMMATURE GRANULOCYTE % 1.2 %; LYMPHOCYTE # 1.4 K/uL (0.8-4.0); LYMPHOCYTE % 10.7 %; MCH 36.9 pg (27.0-34.0); MCV 108.5 fl (83.0-98.0); MONOCYTE # 1.8 K/uL (0.0-1.0); MONOCYTE % 13.2 %; MPV 10.5 fl (9.4-12.4); NEUTROPHIL # (ANC) 9.8 K/uL (1.4-9.0); NEUTROPHIL % 73.7 %; NRBC % 0 /100WBC (0-0.00); PLATELET COUNT 239 K/uL (150-450); RBC 2.82 M/uL (3.50-5.50); RDW-CV 13.7 % (11.9-14.6); WBC 13.2 K/uL (4.0-11.0)
[2017-02-08 11:45] LABS: ALBUMIN 2.6 gm/dL (3.5-5.0); BLOOD UREA NITROGEN 9 mg/dL (6-24); CALCIUM 7.5 mg/dL (8.5-10.5); CHLORIDE 114 mMol/L (96-110); CO2 28 mMol/L (22-32); CPK 30 IU/L (35-332); CREATININE 1.1 mg/dL (0.6-1.3); ESTIMATED GFR (MDRD EQUATION) > 60; PHOSPHORUS 3.4 mg/dL (2.5-4.9); POTASSIUM 4.5 mMol/L (3.7-5.1)
[2017-02-08 11:47] LABS: ANION GAP 10.5 (10.0-19.0); SODIUM 148 mMol/L (135-145)
--- NOTE | 2017-02-08 13:34 | NUR ---
Significant Event: Patient is bedrest. Nonverbal baseline but has been unresponsive this shift to verbal or painful stimuli. on 3-6 liters of oxygen per nasal cannula. Palm cath for accurate I & O . IV to right forearm for antibitoics/seizure medications. IV to left hand with normal saline at 100ml/hr and dopamine at 10mcg/kg/min. palliative care consulted and did visit with family. Neurology consulted and visit is pending. Pending order to give lasix 20mg IV x 1 dose if SBP is greater than 110. patient is repositioned with lift sheet/pillows. oral cares with moistened swabs. frequent vital signs with SBP in 90s. Patient is DNR/DNI. Family does not want patient transferred to ICU.
--- NOTE | 2017-02-09 04:36 | NUR ---
Significant Event: Pupils 2mm brisk. Makes spontaneous movements and withdraws to painful stimuli. No response to verbal stimuli. HR 80-100's, SBP 1st assessment 53/26, on 3L O2 via [place]. Gave Morphine 2mg IV QHr prn for air hunger/pain and Roxinol SL Qhr prn dyspnea with some relief noted. Does become apneic, SOB with rest and grunts when in distress. L.S. coarse throughout. PIV R) forearm SL'd. Turn Q2Hrs and/or as family requests. Brother at bedside throughout night. On comfort cares Follow up: Provide comfort and emotional support.
--- NOTE | 2017-02-09 09:08 | NUR ---
Significant Event: Time of expiration 906. Family at bedside. Dr. Rubio notified per phone by charge nurse, Yvette.
== END 2017-02-09 10:47 | disposition expired | DRG 100 ==
LOC: GMED 10:22 → GNTU 13:28
PROVIDERS: Emergency Medicine; Internal Medicine; Student in an Organized Health Care Education/Training Program; ADMIT Internal Medicine
DX: G40.901 Epilepsy, unspecified, not intractable, with status epilepticus (principal); J69.0 Pneumonitis due to inhalation of food and vomit; J96.01 Acute respiratory failure with hypoxia; R65.21 Severe sepsis with septic shock; A41.9 Sepsis, unspecified organism; G93.40 Encephalopathy, unspecified; N17.9 Acute kidney failure, unspecified; E87.2 Acidosis; F72 Severe intellectual disabilities; I95.9 Hypotension, unspecified; Q90.9 Down syndrome, unspecified; E03.9 Hypothyroidism, unspecified; Z51.5 Encounter for palliative care; E78.00 Pure hypercholesterolemia, unspecified; R09.02 Hypoxemia; H91.90 Unspecified hearing loss, unspecified ear; F42.9 Obsessive-compulsive disorder, unspecified; F32.9 Major depressive disorder, single episode, unspecified; I50.9 Heart failure, unspecified; E87.70 Fluid overload, unspecified; Z82.49 Family history of ischemic heart disease and other diseases of the circulatory system; Z66 Do not resuscitate
CPT/HCPCS: C9254; J1265; J1644; J1940; J1953; J2060; J2270; J2405; J2543; J7030; J7040; J7050; J7060; P9047

== ENCOUNTER → 2017-02-07 | Outpatient (CLI) | payer MEDICARE, MEDICAID ==
[~2017-02-07] MED LIST changes: +ALBUTEROL2.5 MG/31 INH; +DELTASONE20 MG PO; +DITROPAN XL5 MG PO; +LEVAQUIN500 MG PO
== END | disposition disaster alternative care site (69) ==
LOC: GAMB 10:04
DX: R56.9 Unspecified convulsions (principal); R11.10 Vomiting, unspecified; Q90.9 Down syndrome, unspecified; Z79.52 Long term (current) use of systemic steroids; Z79.899 Other long term (current) drug therapy
CPT/HCPCS: A0422; A0425; A0429